=== PATIENT | male | born 1980 | race Two or more races ===

== ENCOUNTER 2019-09-01 16:50 | Emergency (ER) | payer MEDICAID ==
[~2019-09-01] VITALS: Ht 182.9 cm; Wt 82.9 kg
[2019-09-01 16:52] VITALS: BP 108/65
--- NOTE | 2019-09-01 18:35 | NUR ---
INSPECTOR FABRIC: PT AMBULATORY WITH STEADY GAIT TO ROOM AT THIS TIME. TREVER
--- NOTE | 2019-09-01 19:00 | NUR ---
REPORT TO STARLA BALDWIN
[2019-09-01] MEDS ORDERED: ACETAMINOPHEN 500 MG TABLET ONE (19:14)
--- NOTE | 2019-09-01 19:19 | NUR ---
Report received from NICOLASA Booker. Discharge instructions given. All questions and concerns addressed. Patient ambulatory with a steady gait. Belongings with patient.
[2019-09-01] MEDS ORDERED: ACETAMINOPHEN 500 MG TABLET PO ONE (19:30)
== END 2019-09-01 19:25 | disposition home or self-care (01) ==
LOC: ED 18:50
DX: K64.4 Residual hemorrhoidal skin tags (principal); F17.200 Nicotine dependence, unspecified, uncomplicated; Z59.0 Homelessness; Z72.9 Problem related to lifestyle, unspecified
CPT/HCPCS: 99282

== ENCOUNTER 2019-10-17 13:28 | Emergency (ER) | payer MEDICAID ==
[~2019-10-17] VITALS: Ht 182.9 cm; Wt 76.6 kg
--- NOTE | 2019-10-17 13:34 | NUR ---
PT IN RESTROOM PRIOR TO TRIAGE.
[2019-10-17 13:35] VITALS: BP 122/75
--- NOTE | 2019-10-17 13:51 | NUR ---
ERMD at bedside for evaluation
[2019-10-17 14:10] LABS: BASOPHILS # (AUTO) 0.04 x10^3/uL (0-0.1); BASOPHILS % (AUTO) 1 % (0-1); EOSINOPHILS # (AUTO) 0.29 x10^3/uL (0-0.4); EOSINOPHILS % (AUTO) 4 % (1-7); LYMPHOCYTES # (AUTO) 1.95 x10^3/uL (1-3.4); LYMPHOCYTES % (AUTO) 23 % (22-44); MD NO; MEAN CORPUSCULAR HEMOGLOBIN 31.5 pg (27.5-34.5); MEAN CORPUSCULAR HGB CONC 33.7 g/dL (33.2-36.2); MEAN CORPUSCULAR VOLUME 93.4 fL (81-97); MEAN PLATELET VOLUME 7.8 fL (7.4-10.4); MONOCYTES # (AUTO) 0.28 x10^3/uL (0.2-0.8); MONOCYTES % (AUTO) 3 % (2-9); NEUTROPHILS # (AUTO) 5.85 x10^3/uL (1.8-6.8); NEUTROPHILS % (AUTO) 70 % (42-75); PLATELET COUNT 447 x10^3/uL (130-400); RED BLOOD COUNT 4.65 x10^6/uL (4.38-5.82); RED CELL DISTRIBUTION WIDTH 13.2 % (9.4-14.8)
[2019-10-17 14:16] LABS: ALBUMIN 4.2 g/dL (3.4-5.0); ANION GAP 9 mmol/L (5-15); CALCIUM 9.1 mg/dL (8.5-10.1); CHLORIDE 106 mmol/L (98-107); CREATININE 1.01 mg/dL (0.7-1.3)
--- NOTE | 2019-10-17 14:40 | NUR ---
BEDSIDE FOR EXAM. PT HAS CO PAINFUL HEMMOROIDS. W BLEEDING
--- NOTE | 2019-10-17 14:58 | NUR ---
Patient/Caregiver given discharge instructions and they have confirmed that they understand the instructions. Patient ambulatory with steady gait.
== END 2019-10-17 15:09 | disposition home or self-care (01) ==
LOC: ED 15:00
DX: K64.4 Residual hemorrhoidal skin tags (principal); R10.9 Unspecified abdominal pain
CPT/HCPCS: 36415; 80048; 82040; 85025; 99283